=== PATIENT | male | born 1945 | race Caucasian/White ===

== ENCOUNTER 2019-12-09 23:50 | Emergency (ER) | payer OTHER ==
[~2019-12-09] VITALS: Ht 182.9 cm; Wt 89.8 kg
[2019-12-09 23:50] VITALS: BP_SYST 162
--- NOTE | 2019-12-09 23:55 | NUR ---
Patient to ER bed HW2 to gown for evaluation. Side rails up. Report given to SHAN Mercado.
--- NOTE | 2019-12-10 00:15 | NUR ---
Pt has 22g IV to left wrist from [facility] recieving Meropenem 1gm IV TID for sepsis.
--- NOTE | 2019-12-10 00:30 | NUR ---
Patient came into the ER due to leg and back pain. Per patient he had back surgery for arthritis. Patient pain is 8/10. Patient not presenting any signs of acute distress.
[2019-12-10] MEDS ORDERED: traMADol HCL HCL 50 MG TABLET (ULTRAM) PO ONE (01:15)
--- NOTE | 2019-12-10 01:15 | NUR ---
ER at bedside examining patient.
--- NOTE | 2019-12-10 02:15 | NUR ---
Pt to bed 3 after ultrasound. Tolerated well.
[2019-12-10 02:20] LABS: ANION GAP 6 (5-15); CALCIUM 8.8 mg/dL (8.4-11.0); CHLORIDE 98 mmol/L (98-107); CREATININE 0.64 mg/dL (0.55-1.30); GLUCOSE 102 mg/dL (70-99); POTASSIUM 3.7 mmol/L (3.5-5.1); SODIUM SERUM 130 mmol/L (136-145); UREA NITROGEN, BLOOD 14 mg/dL (8-21)
[2019-12-10 02:22] LABS: INR 1.1 (0.80-1.20); PROTHROMBIN TIME 10.9 SECS (9.5-12.5)
[2019-12-10 02:24] LABS: BASOPHILS % (AUTO) 0.5 % (0.0-2.0); EOSINOPHILS # (AUTO) 0.4 K/uL (0.0-0.4); HEMATOCRIT 36.7 % (36-54); HEMOGLOBIN 12.6 g/dL (14.0-18.0); LYMPHOCYTES # (AUTO) 1.8 K/uL (1.0-5.5); MEAN CORPUSCULAR HEMOGLOBIN 31 pg (27-31); MEAN CORPUSCULAR HGB CONC 34 % (32-36); MEAN CORPUSCULAR VOLUME 90 fL (79.0-98.0); MONOCYTES % (AUTO) 10.6 % (1.7-9.3); NEUTROPHILS # (AUTO) 6.3 K/uL (1.8-7.7); NEUTROPHILS % (AUTO) 65.9 % (40.0-70.0); PLATELET COUNT (AUTO) 350 K/uL (130-430); RED BLOOD CELL COUNT(AUTO) 4.09 MIL/uL (4.2-6.2); RED CELL DISTRIBUTION WIDTH 15.5 % (9.0-15.0); WHITE BLOOD COUNT (AUTO) 9.6 K/uL (4.8-10.8)
[2019-12-10 02:25] LABS: ALANINE AMINOTRANSFERASE 31 U/L (12-78); ALBUMIN 2.9 g/dL (3.4-4.8); ASPARTATE AMINOTRANSFERASE 24 U/L (10-37); TOTAL BILIRUBIN 0.6 mg/dL (0.0-1.0)
[2019-12-10] MEDS ORDERED: NS 500 ML IV ONE (03:00)
--- NOTE | 2019-12-10 03:44 | NUR ---
[facility] given report for pt going back to [facility]. VSS. Pain 02/08 rt leg. Discharged home at this time.
[2019-12-10 03:47] VITALS: BP_SYST 135
--- NOTE | 2019-12-10 03:52 | NUR ---
Kirk Dawson for report, spoke with COLTON Snell
== END 2019-12-10 03:44 | disposition home or self-care (01) ==
LOC: EDSEX 23:50 → SED 23:50
DX: R25.1 Tremor, unspecified (principal); E87.1 Hypo-osmolality and hyponatremia
CPT/HCPCS: 36415; 80053; 82550; 83735; 85025; 85610; 85730; 93971; 99284; J7040